=== PATIENT | male | born 1965 | race Caucasian/White ===

== ENCOUNTER 2019-05-26 08:46 | Inpatient (IN) | payer SELFPAY ==
[2019-05-26 09:39] VITALS: BMI 23.3
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
[2019-05-26] MEDS ORDERED: BISMUTH SUBSALICYLATE 524 MG/30 ML UD PO PRN (11:01)
[2019-05-26] MEDS ORDERED: MENTHOL/PHENOL 1 EACH UD MM PRN (11:01)
[2019-05-26] MEDS ORDERED: MAGNESIUM HYDROX 2400MG/30ML ORAL SUSPENSION 30 ML CUP PO PRN (11:01)
[2019-05-26] MEDS ORDERED: MAG HYDROX/AL HYDROX/SIMETH 30 ML UNIT-DOSE CUP PO PRN (11:01)
[2019-05-26] MEDS ORDERED: chlordiazePOXIDE HCL 25 MG CAPSULE PO PRN (11:01)
[2019-05-26] MEDS ORDERED: METHOCARBAMOL 500 MG TABLET PO PRN (11:01)
[2019-05-26] MEDS ORDERED: IBUPROFEN 400 MG TABLET (FP) PO PRN (11:01)
[2019-05-26] MEDS ORDERED: ACETAMINOPHEN 325 MG TABLET (FP) PO PRN ×2 (11:01)
[2019-05-26] MEDS ORDERED: MAGNESIUM CITRATE 300 ML BOTTLE PO PRN (11:01)
[2019-05-26] MEDS ORDERED: ALBUTEROL SO4 8 GM HFA INHALER IH PRN (11:05)
[2019-05-26] MEDS ORDERED: ALBUTEROL SO4 2.5/IPRATROPIUM 0.5 INH SOL 3 ML VIAL.NEB. NEB PRN (11:12)
[2019-05-26] MEDS: SULFAMETHOXAZOLE/TRIMETHOPRIM 800MG/160MG D.S. TABLET PO SCH ×2 (12:57→22:34)
[2019-05-26] MEDS: NICOTINE 21 MG/24 HOURS TOPICAL PATCH TD SCH (13:01)
[2019-05-26 14:46] LABS: HEMATOCRIT 29.2 % (35.4-49); HEMOGLOBIN 8.9 GM/dL (11.7-16.9); MCH 21.7 pg (25.7-33.7); MCHC 30.4 g/dl (32.0-35.9); MEAN CELL VOLUME 71.2 fl (80-96); MEAN PLT VOLUME 8.5 fl (7.5-11.1); PLATELET COUNT 59 K/MM3 (134-434); RDW 22.2 % (11.9-15.9); WHITE BLOOD COUNT 3.7 K/mm3 (4.0-10.0)
[2019-05-26 15:08] LABS: CREATININE 0.8 mg/dL (0.55-1.3)
[2019-05-26 15:10] LABS: CALCIUM 8.5 mg/dL (8.5-10.1); POTASSIUM 3.9 mmol/L (3.5-5.1); TOT PROT 10.3 g/dl (6.4-8.2)
[2019-05-26 15:11] LABS: ALBUMIN 3.7 g/dl (3.4-5.0); BILIRUBIN,TOTAL 0.7 mg/dL (0.2-1)
[2019-05-26 15:28] LABS: BLOOD UREA NITROGEN 12.8 mg/dL (7-18)
[2019-05-26] MEDS ORDERED: LORazepam 1 MG TABLET PO PRN (15:52)
--- NOTE | 2019-05-26 16:10 | PN ---
[facility] Progress Note Note: ast elevation discontinue tylenal begin ativan detox regimen
[2019-05-26] MEDS ORDERED: chlordiazePOXIDE HCL 25 MG CAPSULE PO SCH (17:00)
[2019-05-26] MEDS: LORazepam 1 MG TABLET PO SCH ×2 (17:15→22:33)
[2019-05-26] MEDS: hydrOXYzine PAMOATE 25 MG CAPSULE (FP) PO PRN ×2 (17:46→22:34)
[2019-05-26] MEDS: THIAMINE HCL 100 MG TABLET (FP) PO SCH (22:33)
[2019-05-27] MEDS: LORazepam 1 MG TABLET PO SCH ×3 (06:17→22:36)
--- NOTE | 2019-05-27 08:50 | CONSULT ---
[facility] Psychiatric Consult - Data Date of interview: 05/27/19 Admission source: [facility] Identifying data: Patient is a 54 year old single male, father of four, unemployed, homeless, and is not receiving financial assistance. This is patient 's first admission to [facility]. Patient admitted to for alcohol dependence. Substance Abuse History: Smoking Cessation. Smoking history: Current every day smoker. Have you smoked in the past 12 months: Yes. Aproximately how many cigarettes per day: 20. Cigars Per Day: 0. Hx Chewing Tobacco Use: No. Initiated information on smoking cessation: Yes. 'Breaking Loose' booklet given : 05/26/19. - Substance & Tx. History. Hx Alcohol Use: Yes. Hx Substance Use : No. Substance Use Type: Alcohol. Hx Substance Use Treatment: No. - Substances abused. Alcohol. Substance route: Oral. Frequency: Daily. Amount used: 11/23 VODKA. Age of first use: 12. Date of last use: 05/25/19 Medical History: Asthma, Back surgery in 2017 Psychiatric History: Patient denies h/o psychiatric hospitalization, outpatient care, and suicide attempt. At present, patient reports experiencing difficulty sleeping. Physical/Sexual Abuse/Trauma History: denies. Mental Status Exam - Mental Status Exam Alert and Oriented to: Time, Place, Person Cognitive Function: Fair Patient Appearance: Unkempt Mood: Withdrawn Affect: Mood Congruent Patient Behavior: Cooperative Speech Pattern: Appropriate Voice Loudness: Moderately Soft/Quiet Thought Process: Goal Oriented Thought Disorder: Not Present Hallucinations: Denies Suicidal Ideation: Denies Homicidal Ideation: Denies Insight/Judgement: Poor Sleep: Poorly Appetite: Fair Muscle strength/Tone: Normal Gait/Station: Other (Ambulates with a cane.) Psychiatric Findings - Problem List ([place] 1, 2,3) (1) Alcohol-induced sleep disorder Current Visit: Yes Status: Acute (2) Alcohol dependence with uncomplicated withdrawal Current Visit: Yes Status: Acute - Initial Treatment Plan Initial Treatment Plan: Psychoeducation provided. Detoxification in progress. Patient informed that Melatonin 5mg is available for insomnia. Benefits and side effects discussed. Verbal consent given.
[2019-05-27] MEDS: PRENATAL VITAMINS W/ FOLIC ACID TABLET (FP) PO SCH (11:02)
[2019-05-27] MEDS: SULFAMETHOXAZOLE/TRIMETHOPRIM 800MG/160MG D.S. TABLET PO SCH ×2 (11:02→22:36)
[2019-05-27] MEDS: NICOTINE 21 MG/24 HOURS TOPICAL PATCH TD SCH (11:03)
--- NOTE | 2019-05-27 11:51 | PN ---
S CIWA - CIWA Score Nausea/Vomitin-Mild Nausea/No Vomiting Muscle Tremors: 3 Anxiety: 2 Agitation: 2 Paroxysmal Sweats: 1-Minimal Palms Moist Orientation: 1-Uncertain about Date Tacttile Disturbances: 1-Very Mild Itch/Numbness Auditory Disturbances: 0-None Visual Disturbances: 0-None Headache: 2-Mild CIWA-Ar Total Score: 13 S Progress Note (SOAP) Subjective: reported has many years of liver cirrhosis ascites drainage monthly at [facility] last drainage "end of April" patient dose not have shortness of breath ambulating with cane dietary referral Objective: 05/27/19 11:53 Vital Signs Temperature 98.1 F 05/27/19 09:06 Pulse Rate 78 05/27/19 10:30 Respiratory Rate 18 05/27/19 10:30 Blood Pressure 131/80 05/27/19 09:06 O2 Sat by Pulse Oximetry (%) Laboratory Last Values WBC 3.7 K/mm3 (4.0-10.0) L 05/26/19 11:10 RBC 4.10 M/mm3 (4.00-5.60) 05/26/19 11:10 Hgb 8.9 GM/dL (11.7-16.9) L 05/26/19 11:10 Hct 29.2 % (35.4-49) L 05/26/19 11:10 MCV 71.2 fl (80-96) L 05/26/19 11:10 MCH 21.7 pg (25.7-33.7) L 05/26/19 11:10 MCHC 30.4 g/dl (32.0-35.9) L 05/26/19 11:10 RDW 22.2 % (11.9-15.9) H 05/26/19 11:10 Plt Count 59 K/MM3 (134-434) L 05/26/19 11:10 MPV 8.5 fl (7.5-11.1) 05/26/19 11:10 Platelet Comment No clumping noted 05/26/19 11:10 Sodium 140 mmol/L (136-145) 05/26/19 11:10 Potassium 3.9 mmol/L (3.5-5.1) 05/26/19 11:10 Chloride 105 mmol/L (98-107) 05/26/19 11:10 Carbon Dioxide 24 mmol/L (21-32) 05/26/19 11:10 Anion Gap 11 MMOL/L (8-16) 05/26/19 11:10 BUN 12.8 mg/dL (7-18) 05/26/19 11:10 Creatinine 0.8 mg/dL (0.55-1.3) 05/26/19 11:10 Est GFR (CKD-EPI)AfAm 116.56 05/26/19 11:10 Est GFR (CKD-EPI)NonAf 100.57 05/26/19 11:10 POC Glucometer 102 UNITS (80-120) 05/27/19 06:19 Random Glucose 88 mg/dL (74-106) 05/26/19 11:10 Calcium 8.5 mg/dL (8.5-10.1) 05/26/19 11:10 Total Bilirubin 0.7 mg/dL (0.2-1) 05/26/19 11:10 AST 264 U/L (15-37) H 05/26/19 11:10 ALT 60 U/L (13-61) 05/26/19 11:10 Alkaline Phosphatase 250 U/L (45-117) H 05/26/19 11:10 Total Protein 10.3 g/dl (6.4-8.2) H 05/26/19 11:10 Albumin 3.7 g/dl (3.4-5.0) 05/26/19 11:10 RPR Titer Nonreactive (NONREACTIVE) 05/26/19 11:10 lab noted doing well with ativan detox regimen repeat ast Assessment: 05/27/19 11:54 alcohol withdrawal sx Plan: continue alcohol detox
--- NOTE | 2019-05-27 14:35 | EKG ---
Test Reason : Blood Pressure : / mmHG Vent. Rate : 061 BPM Atrial Rate : 061 BPM P-R Int : 170 ms QRS Dur : 104 ms QT Int : 458 ms P-R-T Axes : 070 066 081 degrees QTc Int : 461 ms NORMAL SINUS RHYTHM NORMAL ECG NO PREVIOUS ECGS AVAILABLE Confirmed by Mega Lucero ([id number]) on 05/27/2019 2:34:56 PM Referred By: Crystal MARIE Confirmed By:Mega Lucero
[2019-05-27 14:50] LABS: EPI CELLS 1.4 /HPF (0-5/HPF); HYALINE CASTS 0 /lpf (0-8); URINE APPEARANCE CLEAR; URINE BACTERIA 5.6 /hpf (NEGATIVE); URINE BILIRUBIN 1+ (NEGATIVE); URINE COLOR DK YELLOW; URINE GLUCOSE (UA) NEGATIVE (NEGATIVE); URINE KETONE TRACE (NEGATIVE); URINE LEUK ESTERASE NEGATIVE (NEGATIVE); URINE NITRITE POSITIVE (NEGATIVE); URINE PROTEIN 1+ (NEGATIVE); URINE RBC 6 /hpf (0-4); URINE WBC 1 /hpf (0-5)
[2019-05-27] MEDS: MELATONIN 5 MG TABLETS PO PRN (22:36)
[2019-05-27] MEDS: THIAMINE HCL 100 MG TABLET (FP) PO SCH (22:36)
[2019-05-28] MEDS ORDERED: chlordiazePOXIDE HCL 25 MG CAPSULE PO SCH (05:00)
[2019-05-28] MEDS ORDERED: LORazepam 0.5 MG TABLET PO PRN (05:05)
[2019-05-28] MEDS: LORazepam 0.5 MG TABLET PO SCH ×4 (05:35→22:08)
[2019-05-28] MEDS: PRENATAL VITAMINS W/ FOLIC ACID TABLET (FP) PO SCH (10:39)
[2019-05-28] MEDS: SULFAMETHOXAZOLE/TRIMETHOPRIM 800MG/160MG D.S. TABLET PO SCH ×2 (10:40→22:06)
[2019-05-28] MEDS: NICOTINE 21 MG/24 HOURS TOPICAL PATCH TD SCH (10:43)
--- NOTE | 2019-05-28 11:27 | PN ---
[facility] CIWA - CIWA Score Nausea/Vomitin-Mild Nausea/No Vomiting Muscle Tremors: 3 Anxiety: 3 Agitation: 3 Paroxysmal Sweats: 1-Minimal Palms Moist Orientation: 0-Oriented Tacttile Disturbances: 1-Very Mild Itch/Numbness Auditory Disturbances: 0-None Visual Disturbances: 0-None Headache: 0-None Present CIWA-Ar Total Score: 12 [facility] Progress Note (SOAP) Subjective: no shortness of breath able to lying on bed with one pillow tolerate food and fluid well tremor Objective: 05/28/19 11:24 Vital Signs Temperature 98.6 F 05/28/19 09:22 Pulse Rate 89 05/28/19 09:22 Respiratory Rate 18 05/28/19 09:22 Blood Pressure 114/81 05/28/19 09:22 O2 Sat by Pulse Oximetry (%) Laboratory Last Values WBC 3.7 K/mm3 (4.0-10.0) L 05/26/19 11:10 RBC 4.10 M/mm3 (4.00-5.60) 05/26/19 11:10 Hgb 8.9 GM/dL (11.7-16.9) L 05/26/19 11:10 Hct 29.2 % (35.4-49) L 05/26/19 11:10 MCV 71.2 fl (80-96) L 05/26/19 11:10 MCH 21.7 pg (25.7-33.7) L 05/26/19 11:10 MCHC 30.4 g/dl (32.0-35.9) L 05/26/19 11:10 RDW 22.2 % (11.9-15.9) H 05/26/19 11:10 Plt Count 59 K/MM3 (134-434) L 05/26/19 11:10 MPV 8.5 fl (7.5-11.1) 05/26/19 11:10 Platelet Comment No clumping noted 05/26/19 11:10 Sodium 140 mmol/L (136-145) 05/26/19 11:10 Potassium 3.9 mmol/L (3.5-5.1) 05/26/19 11:10 Chloride 105 mmol/L (98-107) 05/26/19 11:10 Carbon Dioxide 24 mmol/L (21-32) 05/26/19 11:10 Anion Gap 11 MMOL/L (8-16) 05/26/19 11:10 BUN 12.8 mg/dL (7-18) 05/26/19 11:10 Creatinine 0.8 mg/dL (0.55-1.3) 05/26/19 11:10 Est GFR (CKD-EPI)AfAm 116.56 05/26/19 11:10 Est GFR (CKD-EPI)NonAf 100.57 05/26/19 11:10 POC Glucometer 98 UNITS (80-120) 05/28/19 06:51 Random Glucose 88 mg/dL (74-106) 05/26/19 11:10 Calcium 8.5 mg/dL (8.5-10.1) 05/26/19 11:10 Total Bilirubin 0.7 mg/dL (0.2-1) 05/26/19 11:10 AST 264 U/L (15-37) H 05/26/19 11:10 ALT 60 U/L (13-61) 05/26/19 11:10 Alkaline Phosphatase 250 U/L (45-117) H 05/26/19 11:10 Ammonia 155.50 umol/L (11-32) H 05/28/19 09:40 Total Protein 10.3 g/dl (6.4-8.2) H 05/26/19 11:10 Albumin 3.7 g/dl (3.4-5.0) 05/26/19 11:10 Urine Color Dk yellow 05/27/19 12:18 Urine Appearance Clear 05/27/19 12:18 Urine pH 7.0 (5.0-8.0) 05/27/19 12:18 Ur Specific [place] 1.023 (1.010-1.035) 05/27/19 12:18 Urine Protein 1+ (NEGATIVE) H 05/27/19 12:18 Urine Glucose (UA) Negative (NEGATIVE) 05/27/19 12:18 Urine Ketones Trace (NEGATIVE) H 05/27/19 12:18 Urine Blood Negative (NEGATIVE) 05/27/19 12:18 Urine Nitrite Positive (NEGATIVE) H 05/27/19 12:18 Urine Bilirubin 1+ (NEGATIVE) H 05/27/19 12:18 Urine Urobilinogen 2.0 mg/dL (0.2-1.0) 05/27/19 12:18 Ur Leukocyte Esterase Negative (NEGATIVE) 05/27/19 12:18 Urine WBC (Auto) 1 /hpf (0-5) 05/27/19 12:18 Urine RBC (Auto) 6 /hpf (0-4) 05/27/19 12:18 Urine Casts (Auto) 0 /lpf (0-8) 05/27/19 12:18 U Epithel Cells (Auto) 1.4 /HPF (0-5/HPF) 05/27/19 12:18 Urine Bacteria (Auto) 5.6 /hpf (NEGATIVE) 05/27/19 12:18 RPR Titer Nonreactive (NONREACTIVE) 05/26/19 11:10 TB (QFT) Incubation (.) 05/26/19 11:10 TB Test (QFT) Nil 0.08 IU/mL (.) 05/26/19 11:10 TB Test (QFT) Mitogen >10.00 IU/mL (.) 05/26/19 11:10 TB Test (QFT) Antigen 0.15 IU/mL (.) 05/26/19 11:10 TB Test (QFT) Negative (Negative) 05/26/19 11:10 TB Positive Criteria (.) 05/26/19 11:10 lab noted ammonia elevation begin lactulose 05/28/19 11:26 continue bactrim ds bid for uti 05/28/19 11:26 Assessment: 05/28/19 11:27 alcohol withdrawal sx 05/28/19 11:27 ammonia elevation Plan: continue alcohol detox repeat ammonia
[2019-05-28] MEDS: LACTULOSE 20 GM/30 ML UDC (FOR ORAL USE ONLY) PO SCH ×2 (13:34→22:06)
[2019-05-28] MEDS: MELATONIN 5 MG TABLETS PO PRN (22:06)
[2019-05-28] MEDS: THIAMINE HCL 100 MG TABLET (FP) PO SCH (22:06)
[2019-05-29] MEDS ORDERED: chlordiazePOXIDE HCL 10 MG CAPSULE PO PRN
[2019-05-29] MEDS ORDERED: chlordiazePOXIDE HCL 10 MG CAPSULE PO SCH (05:00)
[2019-05-29] MEDS: LORazepam 0.5 MG TABLET PO SCH ×3 (06:14→22:01)
[2019-05-29] MEDS: LACTULOSE 20 GM/30 ML UDC (FOR ORAL USE ONLY) PO SCH ×3 (06:16→22:01)
[2019-05-29] MEDS: SULFAMETHOXAZOLE/TRIMETHOPRIM 800MG/160MG D.S. TABLET PO SCH ×2 (10:39→22:01)
[2019-05-29] MEDS: PRENATAL VITAMINS W/ FOLIC ACID TABLET (FP) PO SCH (10:39)
[2019-05-29] MEDS: NICOTINE 21 MG/24 HOURS TOPICAL PATCH TD SCH (10:40)
--- NOTE | 2019-05-29 12:32 | PN ---
S CIWA - CIWA Score Nausea/Vomitin-Mild Nausea/No Vomiting Muscle Tremors: 3 Anxiety: 2 Agitation: 2 Paroxysmal Sweats: 1-Minimal Palms Moist Orientation: 1-Uncertain about Date Tacttile Disturbances: 1-Very Mild Itch/Numbness Auditory Disturbances: 0-None Visual Disturbances: 0-None Headache: 0-None Present CIWA-Ar Total Score: 11 [facility] Progress Note (SOAP) Subjective: 54 years old male admitted on 05/26/19 for alcohol withdrawal sx denies shortness of breath when lying on bed with one pillow change position slowly minimum assistance to and from bathroom ambulating to and from the nurse station slowly steady gait Objective: 05/29/19 12:31 Vital Signs Temperature 97.3 F L 05/29/19 09:19 Pulse Rate 75 05/29/19 09:19 Respiratory Rate 18 05/29/19 09:19 Blood Pressure 117/65 05/29/19 09:19 O2 Sat by Pulse Oximetry (%) Laboratory Last Values WBC 3.7 K/mm3 (4.0-10.0) L 05/26/19 11:10 RBC 4.10 M/mm3 (4.00-5.60) 05/26/19 11:10 Hgb 8.9 GM/dL (11.7-16.9) L 05/26/19 11:10 Hct 29.2 % (35.4-49) L 05/26/19 11:10 MCV 71.2 fl (80-96) L 05/26/19 11:10 MCH 21.7 pg (25.7-33.7) L 05/26/19 11:10 MCHC 30.4 g/dl (32.0-35.9) L 05/26/19 11:10 RDW 22.2 % (11.9-15.9) H 05/26/19 11:10 Plt Count 59 K/MM3 (134-434) L 05/26/19 11:10 MPV 8.5 fl (7.5-11.1) 05/26/19 11:10 Platelet Comment No clumping noted 05/26/19 11:10 Sodium 140 mmol/L (136-145) 05/26/19 11:10 Potassium 3.9 mmol/L (3.5-5.1) 05/26/19 11:10 Chloride 105 mmol/L (98-107) 05/26/19 11:10 Carbon Dioxide 24 mmol/L (21-32) 05/26/19 11:10 Anion Gap 11 MMOL/L (8-16) 05/26/19 11:10 BUN 12.8 mg/dL (7-18) 05/26/19 11:10 Creatinine 0.8 mg/dL (0.55-1.3) 05/26/19 11:10 Est GFR (CKD-EPI)AfAm 116.56 05/26/19 11:10 Est GFR (CKD-EPI)NonAf 100.57 05/26/19 11:10 POC Glucometer 119 UNITS (80-120) 05/28/19 16:23 Random Glucose 88 mg/dL (74-106) 05/26/19 11:10 Calcium 8.5 mg/dL (8.5-10.1) 05/26/19 11:10 Total Bilirubin 0.7 mg/dL (0.2-1) 05/26/19 11:10 AST 264 U/L (15-37) H 05/26/19 11:10 ALT 60 U/L (13-61) 05/26/19 11:10 Alkaline Phosphatase 250 U/L (45-117) H 05/26/19 11:10 Ammonia 155.50 umol/L (11-32) H 05/28/19 09:40 Total Protein 10.3 g/dl (6.4-8.2) H 05/26/19 11:10 Albumin 3.7 g/dl (3.4-5.0) 05/26/19 11:10 Urine Color Dk yellow 05/27/19 12:18 Urine Appearance Clear 05/27/19 12:18 Urine pH 7.0 (5.0-8.0) 05/27/19 12:18 Ur Specific [place] 1.023 (1.010-1.035) 05/27/19 12:18 Urine Protein 1+ (NEGATIVE) H 05/27/19 12:18 Urine Glucose (UA) Negative (NEGATIVE) 05/27/19 12:18 Urine Ketones Trace (NEGATIVE) H 05/27/19 12:18 Urine Blood Negative (NEGATIVE) 05/27/19 12:18 Urine Nitrite Positive (NEGATIVE) H 05/27/19 12:18 Urine Bilirubin 1+ (NEGATIVE) H 05/27/19 12:18 Urine Urobilinogen 2.0 mg/dL (0.2-1.0) 05/27/19 12:18 Ur Leukocyte Esterase Negative (NEGATIVE) 05/27/19 12:18 Urine WBC (Auto) 1 /hpf (0-5) 05/27/19 12:18 Urine RBC (Auto) 6 /hpf (0-4) 05/27/19 12:18 Urine Casts (Auto) 0 /lpf (0-8) 05/27/19 12:18 U Epithel Cells (Auto) 1.4 /HPF (0-5/HPF) 05/27/19 12:18 Urine Bacteria (Auto) 5.6 /hpf (NEGATIVE) 05/27/19 12:18 RPR Titer Nonreactive (NONREACTIVE) 05/26/19 11:10 TB (QFT) Incubation (.) 05/26/19 11:10 TB Test (QFT) Nil 0.08 IU/mL (.) 05/26/19 11:10 TB Test (QFT) Mitogen >10.00 IU/mL (.) 05/26/19 11:10 TB Test (QFT) Antigen 0.15 IU/mL (.) 05/26/19 11:10 TB Test (QFT) Negative (Negative) 05/26/19 11:10 TB Positive Criteria (.) 05/26/19 11:10 lab noted 05/29/19 12:35 continue lactulose repeat ast and ammonia contineu bactrim ds bid Assessment: 05/29/19 12:36 alcohol withdrawal sx uti ascites ammonia elevation ast elevation Plan: continue alcohol deetox
[2019-05-29] MEDS: THIAMINE HCL 100 MG TABLET (FP) PO SCH (22:01)
[2019-05-29] MEDS: MELATONIN 5 MG TABLETS PO PRN (22:01)
[2019-05-30] MEDS ORDERED: chlordiazePOXIDE HCL 10 MG CAPSULE PO SCH (05:00)
[2019-05-30] MEDS: LACTULOSE 20 GM/30 ML UDC (FOR ORAL USE ONLY) PO SCH ×2 (05:30→14:33)
[2019-05-30] MEDS: LORazepam 0.5 MG TABLET PO SCH ×2 (05:30→10:25)
[2019-05-30] MEDS: PRENATAL VITAMINS W/ FOLIC ACID TABLET (FP) PO SCH (10:24)
[2019-05-30] MEDS: SULFAMETHOXAZOLE/TRIMETHOPRIM 800MG/160MG D.S. TABLET PO SCH (10:25)
[2019-05-30] MEDS: NICOTINE 21 MG/24 HOURS TOPICAL PATCH TD SCH (10:25)
[2019-05-30 13:59] VITALS: BP 120/68; PULSE 64; TEMP 96.7
--- NOTE | 2019-05-30 14:41 | PN ---
S CIWA - CIWA Score Nausea/Vomitin Muscle Tremors: 3 Anxiety: 3 Agitation: 0-Normal Activity Paroxysmal Sweats: No Perspiration Orientation: 2-Disoriented Date<2 days Tacttile Disturbances: 1-Very Mild Itch/Numbness Auditory Disturbances: 0-None Visual Disturbances: 2-Mild Sensitivity Headache: 0-None Present CIWA-Ar Total Score: 14 [facility] Progress Note (SOAP) Subjective: Stomach Cramping, Diarrhea, Tremors, Nausea. Objective: PATIENT A & O X 1 (UNCERTAIN ABOUT CURRENT DAY / DATE AND ABOUT CURRENT LOCATION ). PATIENT OBSERVED AMBULATING ON UNIT UNASSISTED. IN NO ACUTE DISTRESS. 05/30/19 14:38 Vital Signs Temperature 96.7 F L 05/30/19 13:55 Pulse Rate 64 05/30/19 13:55 Respiratory Rate 18 05/30/19 13:55 Blood Pressure 120/68 05/30/19 13:55 O2 Sat by Pulse Oximetry (%) Laboratory Tests 05/26/19 05/26/19 05/26/19 10:57 11:10 11:10 WBC 3.7 L RBC 4.10 Hgb 8.9 L Hct 29.2 L MCV 71.2 L MCH 21.7 L MCHC 30.4 L RDW 22.2 H Plt Count 59 L MPV 8.5 Platelet Comment No clumping noted Sodium Potassium Chloride Carbon Dioxide Anion Gap BUN Creatinine Est GFR (CKD-EPI)AfAm Est GFR (CKD-EPI)NonAf POC Glucometer 87 Random Glucose Calcium Total Bilirubin AST ALT Alkaline Phosphatase Ammonia Total Protein Albumin Urine Color Urine Appearance Urine pH Ur Specific [place] Urine Protein Urine Glucose (UA) Urine Ketones Urine Blood Urine Nitrite Urine Bilirubin Urine Urobilinogen Ur Leukocyte Esterase Urine WBC (Auto) Urine RBC (Auto) Urine Casts (Auto) U Epithel Cells (Auto) Urine Bacteria (Auto) RPR Titer TB (QFT) Incubation TB Test (QFT) Nil 0.08 TB Test (QFT) Mitogen >10.00 TB Test (QFT) Antigen 0.15 TB Test (QFT) Negative TB Positive Criteria 05/26/19 05/26/19 05/26/19 11:10 11:10 16:23 WBC RBC Hgb Hct MCV MCH MCHC RDW Plt Count MPV Platelet Comment Sodium 140 Potassium 3.9 Chloride 105 Carbon Dioxide 24 Anion Gap 11 BUN 12.8 Creatinine 0.8 Est GFR (CKD-EPI)AfAm 116.56 Est GFR (CKD-EPI)NonAf 100.57 POC Glucometer 90 Random Glucose 88 Calcium 8.5 Total Bilirubin 0.7 AST 264 H ALT 60 Alkaline Phosphatase 250 H Ammonia Total Protein 10.3 H Albumin 3.7 Urine Color Urine Appearance Urine pH Ur Specific [place] Urine Protein Urine Glucose (UA) Urine Ketones Urine Blood Urine Nitrite Urine Bilirubin Urine Urobilinogen Ur Leukocyte Esterase Urine WBC (Auto) Urine RBC (Auto) Urine Casts (Auto) U Epithel Cells (Auto) Urine Bacteria (Auto) RPR Titer Nonreactive TB (QFT) Incubation TB Test (QFT) Nil TB Test (QFT) Mitogen TB Test (QFT) Antigen TB Test (QFT) TB Positive Criteria 05/27/19 05/27/19 05/27/19 06:19 12:18 16:19 WBC RBC Hgb Hct MCV MCH MCHC RDW Plt Count MPV Platelet Comment Sodium Potassium Chloride Carbon Dioxide Anion Gap BUN Creatinine Est GFR (CKD-EPI)AfAm Est GFR (CKD-EPI)NonAf POC Glucometer 102 94 Random Glucose Calcium Total Bilirubin AST ALT Alkaline Phosphatase Ammonia Total Protein Albumin Urine Color Dk yellow Urine Appearance Clear Urine pH 7.0 Ur Specific [place] 1.023 Urine Protein 1+ H Urine Glucose (UA) Negative Urine Ketones Trace H Urine Blood Negative Urine Nitrite Positive H Urine Bilirubin 1+ H Urine Urobilinogen 2.0 Ur Leukocyte Esterase Negative Urine WBC (Auto) 1 Urine RBC (Auto) 6 Urine Casts (Auto) 0 U Epithel Cells (Auto) 1.4 Urine Bacteria (Auto) 5.6 RPR Titer TB (QFT) Incubation TB Test (QFT) Nil TB Test (QFT) Mitogen TB Test (QFT) Antigen TB Test (QFT) TB Positive Criteria 05/28/19 05/28/19 05/28/19 06:51 09:40 16:23 WBC RBC Hgb Hct MCV MCH MCHC RDW Plt Count MPV Platelet Comment Sodium Potassium Chloride Carbon Dioxide Anion Gap BUN Creatinine Est GFR (CKD-EPI)AfAm Est GFR (CKD-EPI)NonAf POC Glucometer 98 119 Random Glucose Calcium Total Bilirubin AST ALT Alkaline Phosphatase Ammonia 155.50 H Total Protein Albumin Urine Color Urine Appearance Urine pH Ur Specific [place] Urine Protein Urine Glucose (UA) Urine Ketones Urine Blood Urine Nitrite Urine Bilirubin Urine Urobilinogen Ur Leukocyte Esterase Urine WBC (Auto) Urine RBC (Auto) Urine Casts (Auto) U Epithel Cells (Auto) Urine Bacteria (Auto) RPR Titer TB (QFT) Incubation TB Test (QFT) Nil TB Test (QFT) Mitogen TB Test (QFT) Antigen TB Test (QFT) TB Positive Criteria 05/29/19 05/30/19 05/30/19 16:27 07:00 07:00 WBC RBC Hgb Hct MCV MCH MCHC RDW Plt Count MPV Platelet Comment Sodium Potassium Chloride Carbon Dioxide Anion Gap BUN Creatinine Est GFR (CKD-EPI)AfAm Est GFR (CKD-EPI)NonAf POC Glucometer 132 Random Glucose Calcium Total Bilirubin AST 148 H ALT Alkaline Phosphatase Ammonia 110.90 H Total Protein Albumin Urine Color Urine Appearance Urine pH Ur Specific [place] Urine Protein Urine Glucose (UA) Urine Ketones Urine Blood Urine Nitrite Urine Bilirubin Urine Urobilinogen Ur Leukocyte Esterase Urine WBC (Auto) Urine RBC (Auto) Urine Casts (Auto) U Epithel Cells (Auto) Urine Bacteria (Auto) RPR Titer TB (QFT) Incubation TB Test (QFT) Nil TB Test (QFT) Mitogen TB Test (QFT) Antigen TB Test (QFT) TB Positive Criteria LABS NOTED. RESULTS OF REPEAT AST AND AMMONIA LEVELS NOTED. SIGNIFICANT REDUCTIONS NOTED ON BOTH VALUES IN COMPARISON TO ADMISSION VALUES. 05/30/19 14:39 Assessment: 05/30/19 14:38 WITHDRAWAL SYMPTOMS. ELEVATED AST LEVEL. HYPERAMMONEMIA. 05/30/19 14:40 Plan: CONTINUE DETOX. INCREASE DAILY PO WATER INTAKE. CONTINUE LACTULOSE.
--- NOTE | 2019-05-30 14:44 | DS ---
[facility] Detox Discharge Summary Admission Date: 05/26/19 Discharge Date: 05/30/19 - History Present History: Alcohol Dependence Additional Comments: PATIENT DOES NOT WISH TO REMAIN TO COMPLETE DETOX REGIMEN. RISKS OF LEAVING DETOX UNIT AGAINST MEDICAL ADVICE AND PRIOR TO COMPLETION OF DETOX REGIMEN EXPLAINED TO PATIENT. PATIENT ADVISED TO GO IMMEDIATELY TO NEAREST ER SHOULD ANY INTOLERABLE WITHDRAWAL / DETOX SYMPTOMS DEVELOP AT ANY TIME. PATIENT ALSO ADVISED TO FOLLOW-UP WITH MALARIOLOGIST SOON POSSIBLE FOR GENERAL MEDICAL ASSESSMENT AND FOR ELEVATED AST AND AMMONIA LEVELS NOTED NOTED ON DETOX ADMISSION AND REPEAT LABORATORY ASSESSMENT. PATIENT VERBALIZED UNDERSTANDING OF RECOMMENDATION. COPIES OF RESULTS OF ALL LABS DRAWN WHILE ADMITTED FOR DETOX GIVEN TO PATIENT AT TIME OF DISCHARGE FROM DETOX UNIT. PATIENT LEFT DETOX UNIT IN STABLE MEDICAL CONDITION. Pertinent Past History: Asthma, Nicotine Dependence, Dehydration, Histroy Of Syncope, History Of Frequent Falls, History of Back Surgery, History Of Bronchitis, History Of ( Closed) Fracture Of Lumbar Vertebra, Lower Back Pain, History Of Back Surgery, Elevated AST Level, Hyperammonemia, Weight Loss, Depression, Use Of Cane As Ambulatory Aid, Type II DM. - Physical Exam Results Vital Signs: Vital Signs Temperature 96.7 F L 05/30/19 13:55 Pulse Rate 64 05/30/19 13:55 Respiratory Rate 18 05/30/19 13:55 Blood Pressure 120/68 05/30/19 13:55 O2 Sat by Pulse Oximetry (%) Pertinent Admission Physical Exam Findings: WITHDRAWAL SYMPTOMS. Laboratory Tests 05/26/19 05/26/19 05/26/19 10:57 11:10 11:10 WBC 3.7 L RBC 4.10 Hgb 8.9 L Hct 29.2 L MCV 71.2 L MCH 21.7 L MCHC 30.4 L RDW 22.2 H Plt Count 59 L MPV 8.5 Platelet Comment No clumping noted Sodium Potassium Chloride Carbon Dioxide Anion Gap BUN Creatinine Est GFR (CKD-EPI)AfAm Est GFR (CKD-EPI)NonAf POC Glucometer 87 Random Glucose Calcium Total Bilirubin AST ALT Alkaline Phosphatase Ammonia Total Protein Albumin Urine Color Urine Appearance Urine pH Ur Specific [place] Urine Protein Urine Glucose (UA) Urine Ketones Urine Blood Urine Nitrite Urine Bilirubin Urine Urobilinogen Ur Leukocyte Esterase Urine WBC (Auto) Urine RBC (Auto) Urine Casts (Auto) U Epithel Cells (Auto) Urine Bacteria (Auto) RPR Titer TB (QFT) Incubation TB Test (QFT) Nil 0.08 TB Test (QFT) Mitogen >10.00 TB Test (QFT) Antigen 0.15 TB Test (QFT) Negative TB Positive Criteria 05/26/19 05/26/19 05/26/19 11:10 11:10 16:23 WBC RBC Hgb Hct MCV MCH MCHC RDW Plt Count MPV Platelet Comment Sodium 140 Potassium 3.9 Chloride 105 Carbon Dioxide 24 Anion Gap 11 BUN 12.8 Creatinine 0.8 Est GFR (CKD-EPI)AfAm 116.56 Est GFR (CKD-EPI)NonAf 100.57 POC Glucometer 90 Random Glucose 88 Calcium 8.5 Total Bilirubin 0.7 AST 264 H ALT 60 Alkaline Phosphatase 250 H Ammonia Total Protein 10.3 H Albumin 3.7 Urine Color Urine Appearance Urine pH Ur Specific [place] Urine Protein Urine Glucose (UA) Urine Ketones Urine Blood Urine Nitrite Urine Bilirubin Urine Urobilinogen Ur Leukocyte Esterase Urine WBC (Auto) Urine RBC (Auto) Urine Casts (Auto) U Epithel Cells (Auto) Urine Bacteria (Auto) RPR Titer Nonreactive TB (QFT) Incubation TB Test (QFT) Nil TB Test (QFT) Mitogen TB Test (QFT) Antigen TB Test (QFT) TB Positive Criteria 05/27/19 05/27/19 05/27/19 06:19 12:18 16:19 WBC RBC Hgb Hct MCV MCH MCHC RDW Plt Count MPV Platelet Comment Sodium Potassium Chloride Carbon Dioxide Anion Gap BUN Creatinine Est GFR (CKD-EPI)AfAm Est GFR (CKD-EPI)NonAf POC Glucometer 102 94 Random Glucose Calcium Total Bilirubin AST ALT Alkaline Phosphatase Ammonia Total Protein Albumin Urine Color Dk yellow Urine Appearance Clear Urine pH 7.0 Ur Specific [place] 1.023 Urine Protein 1+ H Urine Glucose (UA) Negative Urine Ketones Trace H Urine Blood Negative Urine Nitrite Positive H Urine Bilirubin 1+ H Urine Urobilinogen 2.0 Ur Leukocyte Esterase Negative Urine WBC (Auto) 1 Urine RBC (Auto) 6 Urine Casts (Auto) 0 U Epithel Cells (Auto) 1.4 Urine Bacteria (Auto) 5.6 RPR Titer TB (QFT) Incubation TB Test (QFT) Nil TB Test (QFT) Mitogen TB Test (QFT) Antigen TB Test (QFT) TB Positive Criteria 05/28/19 05/28/19 05/28/19 06:51 09:40 16:23 WBC RBC Hgb Hct MCV MCH MCHC RDW Plt Count MPV Platelet Comment Sodium Potassium Chloride Carbon Dioxide Anion Gap BUN Creatinine Est GFR (CKD-EPI)AfAm Est GFR (CKD-EPI)NonAf POC Glucometer 98 119 Random Glucose Calcium Total Bilirubin AST ALT Alkaline Phosphatase Ammonia 155.50 H Total Protein Albumin Urine Color Urine Appearance Urine pH Ur Specific [place] Urine Protein Urine Glucose (UA) Urine Ketones Urine Blood Urine Nitrite Urine Bilirubin Urine Urobilinogen Ur Leukocyte Esterase Urine WBC (Auto) Urine RBC (Auto) Urine Casts (Auto) U Epithel Cells (Auto) Urine Bacteria (Auto) RPR Titer TB (QFT) Incubation TB Test (QFT) Nil TB Test (QFT) Mitogen TB Test (QFT) Antigen TB Test (QFT) TB Positive Criteria 05/29/19 05/30/19 05/30/19 16:27 07:00 07:00 WBC RBC Hgb Hct MCV MCH MCHC RDW Plt Count MPV Platelet Comment Sodium Potassium Chloride Carbon Dioxide Anion Gap BUN Creatinine Est GFR (CKD-EPI)AfAm Est GFR (CKD-EPI)NonAf POC Glucometer 132 Random Glucose Calcium Total Bilirubin AST 148 H ALT Alkaline Phosphatase Ammonia 110.90 H Total Protein Albumin Urine Color Urine Appearance Urine pH Ur Specific [place] Urine Protein Urine Glucose (UA) Urine Ketones Urine Blood Urine Nitrite Urine Bilirubin Urine Urobilinogen Ur Leukocyte Esterase Urine WBC (Auto) Urine RBC (Auto) Urine Casts (Auto) U Epithel Cells (Auto) Urine Bacteria (Auto) RPR Titer TB (QFT) Incubation TB Test (QFT) Nil TB Test (QFT) Mitogen TB Test (QFT) Antigen TB Test (QFT) TB Positive Criteria LABS NOTED. - Treatment Hospital Course: Detox Protocol Followed, Detoxed Safely - Medication Discharge Medications: Ambulatory Orders NK [No Known Home Medication] 05/26/19 - Diagnosis (1) Alcohol dependence with uncomplicated intoxication Current Visit: Yes Status: Acute (2) Alcohol dependence with uncomplicated withdrawal Current Visit: Yes Status: Acute (3) Alcohol-induced sleep disorder Current Visit: Yes Status: Acute (4) Asthma Current Visit: Yes Status: Acute Qualifiers: Asthma severity: unspecified severity Asthma persistence: unspecified Asthma complication type: uncomplicated Qualified Code(s): J45.909 - Unspecified asthma, uncomplicated (5) Bronchitis Current Visit: Yes Status: Acute (6) DM2 (diabetes mellitus, type 2) Current Visit: Yes Status: Acute Qualifiers: Diabetes mellitus ad terminal makeup operator insulin use: without ad terminal makeup operator use Diabetes mellitus complication status: with other specified complication Qualified Code (s): E11.69 - Type 2 diabetes mellitus with other specified complication (7) Dehydration Current Visit: Yes Status: Acute (8) Frequent falls Current Visit: Yes Status: Acute (9) Fx lumbar vertebra-closed Current Visit: Yes Status: Acute Qualifiers: Encounter type: sequela Lumbar vertebra fracture level: unspecified lumbar vertebra Fracture morphology: unspecified fracture morphology Qualified Code (s): S32.009S - Unspecified fracture of unspecified lumbar vertebra, sequela (10) History of back surgery Current Visit: Yes Status: Chronic (11) Low back pain Current Visit: Yes Status: Acute Qualifiers: Chronicity: unspecified Back pain laterality: unspecified Sciatica presence: unspecified whether sciatica present Qualified Code(s): M54.5 - Low back pain (12) Multiple abrasions Current Visit: Yes Status: Acute (13) Syncope Current Visit: Yes Status: Acute Qualifiers: Syncope type: unspecified Qualified Code(s): R55 - Syncope and collapse - AMA Did Patient Leave Against Medical Advice: Yes (PATIENT DID NOT WISH TO REMAIN TO COMPLETE DETOX REGIMEN.)
[2019-05-31] MEDS ORDERED: LORazepam 0.5 MG TABLET PO ONE (05:00)
[2019-05-31] MEDS ORDERED: chlordiazePOXIDE HCL 10 MG CAPSULE PO ONE (05:00)
== END 2019-05-30 13:30 | disposition left against medical advice (07) | DRG 770 ==
LOC: YASAS 08:46 → Y3N 11:04
PROVIDERS: ADMIT Surgery; ATTEND Surgery
PROC: HZ2ZZZZ Detoxification Services for Substance Abuse Treatment (ICD-10-PCS; principal; 2019-05-26)
DX: F10.230 Alcohol dependence with withdrawal, uncomplicated (principal); F10.220 Alcohol dependence with intoxication, uncomplicated; F17.210 Nicotine dependence, cigarettes, uncomplicated; F10.982 Alcohol use, unspecified with alcohol-induced sleep disorder; N39.0 Urinary tract infection, site not specified; J45.909 Unspecified asthma, uncomplicated; J20.9 Acute bronchitis, unspecified; E11.9 Type 2 diabetes mellitus without complications; E86.0 Dehydration; E72.20 Disorder of urea cycle metabolism, unspecified; R94.5 Abnormal results of liver function studies; R63.4 Abnormal weight loss; Z68.23 Body mass index [BMI] 23.0-23.9, adult; T07.XXXA Unspecified multiple injuries, initial encounter; S32.009S Unspecified fracture of unspecified lumbar vertebra, sequela; R29.6 Repeated falls; Z99.89 Dependence on other enabling machines and devices; Z59.0 Homelessness
CPT/HCPCS: 36415; 80053; 81003; 82140; 82962; 84450; 85027; 86480; 86593; 93005; 93010